=== PATIENT | male | born 1955 | race Caucasian/White ===

== ENCOUNTER 2018-10-05 07:35 | Emergency (ER) | payer MEDICARE ==
--- NOTE | 2018-10-05 08:45 | EDM.PDOC ---
ED HPI GENERAL MEDICAL PROBLEM - General Chief Complaint: Back Pain or Injury Stated Complaint: SHARP BACK PAIN Time Seen by Provider: 10/05/18 08:35 Source of Information: Reports: Patient, RN History Limitations: Reports: No Limitations - History of Present Illness INITIAL COMMENTS - FREE TEXT/NARRATIVE: 63 yo male moved to the area 2 weeks ago so no primary care provider. Has had pain in his R low back for about this duration of time, but does not recall a specific injury. He has no radiation of the pain. No bowel or bladder issues. No numbness of his lower extremities. Has a remote hx of a lumbar disc compression fx about 5 yrs ago that fully resolved(pain-rhodes). Sx's getting worse if anything, has not been seen prior to today's visit. No associated urinary sx's or cough or SOB. Does describe what sounds like muscle spasms with movement. Drove himself to the ER today. Onset: Gradual Onset Date: 09/26/18 Duration: Day(s):, Getting Worse Location: Reports: Back Quality: Reports: Stabbing Severity: Moderate Improves with: Reports: Rest Worsens with: Reports: Movement Context: Reports: Other (unknown) Associated Symptoms: Reports: No Other Symptoms. Denies: Diaphoresis, Fever/ Chills, Nausea/Vomiting Treatments [employer]: Reports: Other (see below) (none today) Right Middle Back Pain Score (Numeric/FACES): 10 - Related Data Allergies Allergy/AdvReac Type Severity Reaction Status Date / Time No Known Allergies Allergy Verified 10/05/18 08:05 Home Meds: Home Meds Aspirin [Halfprin] 81 mg PO DAILY 10/05/18 [History] Calcium Carbonate/Vitamin D3 [Calcium 600 + Vit D Tablet] 1 each PO DAILY [History] Canagliflozin [Invokana] 300 mg PO DAILY 10/05/18 [History] Carvedilol 25 mg PO BID 10/05/18 [History] Digoxin 125 mcg PO DAILY 10/05/18 [History] Eplerenone [Inspra] 25 mg PO DAILY 10/05/18 [History] Lisinopril 20 mg PO DAILY 10/05/18 [History] Multivitamin [Multiple Vitamins] 1 each PO DAILY 10/05/18 [History] Omeprazole 20 mg PO DAILY 10/05/18 [History] Temazepam 30 mg PO BEDTIME 10/05/18 [History] atorvaSTATin [Lipitor] 40 mg PO BEDTIME 10/05/18 [History] Past Medical History Cardiovascular History: Reports: Afib, Automatic Implantable Cardioverter Defibrillators, CAD, Heart Failure, High Cholesterol, Hypertension, Pacemaker Respiratory History: Reports: Sleep Apnea Other Respiratory History: c-pap Gastrointestinal History: Reports: GERD, Other (See Below) Other Gastrointestinal History: gastric sleeve 2010 Other Neuro History: left side went numb for 3 days from a migraine Endocrine/Metabolic History: Reports: Diabetes, Type II, Obesity/BMI 30+ - Past Surgical History Cardiovascular Surgical History: Reports: Cardiac Ablation GI Surgical History: Reports: Colonoscopy Social & Family History - Tobacco Use Smoking Status *Q: Former Smoker Used Tobacco, but Quit: Yes Month/Year Tobacco Last Used: 10 years - Caffeine Use Caffeine Use: Reports: Coffee - Recreational Drug Use Recreational Drug Use: No ED ROS GENERAL - Review of Systems Review Of Systems: See Below Constitutional: Reports: No Symptoms HEENT: Reports: No Symptoms Respiratory: Reports: No Symptoms Cardiovascular: Reports: No Symptoms Endocrine: Reports: No Symptoms GI/Abdominal: Reports: No Symptoms : Reports: No Symptoms Musculoskeletal: Reports: Back Pain Skin: Reports: No Symptoms Neurological: Reports: No Symptoms Psychiatric: Reports: No Symptoms ED EXAM,LOWER BACK PAIN/INJURY - Physical Exam Exam: See Below Exam Limited By: No Limitations General Appearance: Alert, WD/WN, Mild Distress Eye Exam: Bilateral Eye: Normal Inspection Ears: Hearing Grossly Normal Nose: Normal Inspection, No Blood Throat/Mouth: Normal Lips, Normal Voice, No Airway Compromise Head: Atraumatic, Normocephalic Neck: Normal Inspection Respiratory/Chest: No Respiratory Distress, Lungs Clear, Normal Breath Sounds, No Accessory Muscle Use Cardiovascular: Regular Rate, Rhythm, No Edema Back Exam: Normal Inspection, Decreased Range of Motion, Muscle Spasm (R lumbar paraspinous), Paraspinal Tenderness (R lumbar). No: Full Range of Motion, CVA Tenderness (R), CVA Tenderness (L), Vertebral Tenderness Extremities: Normal Inspection, Normal Range of Motion, Non-Tender, No Pedal Edema Neurological: Alert, Normal Mood/Affect, Normal Dorsiflexion, CN II-XII Intact, No Motor/Sensory Deficits, Oriented x 3 Psychiatric: Normal Affect, Normal Mood Skin Exam: Warm, Dry, Intact, Normal Color, No Rash Course - Vital Signs Last Recorded V/S: Last Vital Signs Temp 35.9 C 10/05/18 08:03 Pulse 80 10/05/18 08:03 Resp 18 10/05/18 08:03 BP 115/67 10/05/18 08:03 Pulse Ox 96 10/05/18 08:03 - Orders/Labs/Meds Orders: Active Orders 24 hr Category Date Time Status Lumbar Spine 2 or 3V [CR] Stat Exams 10/05/18 08:39 Ordered - Radiology Interpretation Free Text/Narrative:: lumbar spine X-ray-neg Departure - Departure Time of Disposition: 09:10 Disposition: Home, Self-Care 01 Condition: Fair Clinical Impression: Lumbar paraspinal muscle spasm - Discharge Information *PRESCRIPTION DRUG MONITORING PROGRAM REVIEWED*: No *COPY OF PRESCRIPTION DRUG MONITORING REPORT IN PATIENT FABRICE: No Instructions: Muscle Cramps and Spasms, [id number] Referrals: PCP,None [Primary Care Provider] - Forms: ED Department Discharge Additional Instructions: Take Flexeril 5-10 mg every 6-8 hrs as needed. No lifting, bending or twisting. Add Aleve 2 every 8 hrs with food(naproxen sodium) and/or acetaminophen up to 1000 mg every 6 hrs as needed. Massage to area may give some relief. Whirlpool may also be helpful. Follow up in the clinic if not improving within the next few days. - My Orders Last 24 Hours: My Active Orders 10/05/18 08:39 Lumbar Spine 2 or 3V [CR] Stat - Assessment/Plan Last 24 Hours: My Active Orders 10/05/18 08:39 Lumbar Spine 2 or 3V [CR] Stat
--- NOTE | 2018-10-05 09:46 | CRLCR ---
INDICATION: Right-sided low back pain TECHNIQUE: 2-view lumbar spine. COMPARISON: none FINDINGS: No lumbar vertebral body fracture. Facet arthropathy L5-S1. Multilevel discogenic spurring. Dense vascular calcifications. Normal psoas margins. No bowel obstruction. IMPRESSION: No fracture. Mild multilevel degenerative disc disease. Moderate facet arthropathy L5-S1. Dictated by Sharad Gonzalez MD @ Oct 05 2018 9:41AM Signed by Dr. Sharad Gonzalez @ Oct 05 2018 9:43AM
== END 2018-10-05 09:25 | disposition home or self-care (01) ==
LOC: JP.ED 07:35
DX: M62.830 Muscle spasm of back (principal); I10 Essential (primary) hypertension; K21.9 Gastro-esophageal reflux disease without esophagitis; E11.9 Type 2 diabetes mellitus without complications; Z79.82 Long term (current) use of aspirin; Z79.899 Other long term (current) drug therapy; Z87.891 Personal history of nicotine dependence
CPT/HCPCS: 72100; 99283-25

== ENCOUNTER 2018-11-14 06:18 | Day surgery (SDC) | payer MEDICARE ==
[2018-11-14] MEDS ORDERED: fentaNYL 100 MCG/2 ML SDV ONE (07:13)
[2018-11-14] MEDS ORDERED: Midazolam 1 MG/ML 2 ML SDV ONE (07:13)
[2018-11-14] MEDS ORDERED: Propofol 200 MG/20 ML SDV ONE ×2 (07:13→07:56)
[2018-11-14] MEDS ORDERED: Sodium Chloride 0.9% 1,000 ML IV SCH (07:30)
--- NOTE | 2018-11-14 13:27 | OR ---
DATE OF PROCEDURE: 11/14/2018 PROCEDURE: Colonoscopy. FINDINGS: Normal colonoscopy. PREOPERATIVE DIAGNOSIS: Family history of colorectal cancer. POSTOPERATIVE DIAGNOSIS: Family history of colorectal cancer. RISKS: Risks, benefits, alternatives, and limitations including, but not limited to infection, bleeding, perforation were explained to the patient and wished to proceed. PROCEDURE IN DETAIL: The patient was placed in a left lateral decubitus position. Digital rectal exam was performed without abnormality. Scope was introduced and advanced atraumatically to the ileocecal valve. Scope was brought back to the ascending, transverse, descending colon, and retroflexed. The prep was moderately acceptable with some solid and liquid stool remaining. Attempts were made to remove as much as possible thus allowing us to see greater than 95% of luminal surface. As the scope was brought back to the colon and retroflexed, no abnormalities were noted. No old or new blood. No polyps. No diverticulosis. No colitis. No abnormalities on retroflexion. The patient tolerated this procedure well. Pavel Soto MD /[id number]
== END 2018-11-14 09:01 | disposition home or self-care (01) ==
LOC: JP.SDS 06:18
PROVIDERS: ATTEND Surgery
DX: Z12.11 Encounter for screening for malignant neoplasm of colon (principal); G47.33 Obstructive sleep apnea (adult) (pediatric); I48.91 Unspecified atrial fibrillation; I25.10 Atherosclerotic heart disease of native coronary artery without angina pectoris; I10 Essential (primary) hypertension; E78.5 Hyperlipidemia, unspecified; E11.9 Type 2 diabetes mellitus without complications; Z98.84 Bariatric surgery status; Z95.810 Presence of automatic (implantable) cardiac defibrillator; Z80.0 Family history of malignant neoplasm of digestive organs
CPT/HCPCS: 45378; J2250; J2704; J3010; J7030

== ENCOUNTER 2019-09-27 21:28 | Emergency (ER) | payer MEDICARE ==
[2019-09-27] MEDS ORDERED: Acetaminophen 325 MG Tab PO ONE (22:04)
--- NOTE | 2019-09-27 22:12 | EDM.PDOC ---
ED HPI GENERAL MEDICAL PROBLEM - General Chief Complaint: Cardiovascular Problem Stated Complaint: CONCERNED ABOUT BLOOD CLOT/LT LEG Time Seen by Provider: 09/27/19 22:05 Source of Information: Reports: Patient History Limitations: Reports: No Limitations - History of Present Illness INITIAL COMMENTS - FREE TEXT/NARRATIVE: pt has a long history of clot problems. He had pulmonary emboli many years ago. About 4 years ago he had clots in his legs. He is not on any blood thinners. Onset: Gradual, Other (pt became nauseated for a period of time and he felt sob and was doing some panting. ) Duration: Hour(s): Location: Reports: Chest, Lower Extremity, Left Associated Symptoms: Reports: Shortness of Breath, Other (pt had a brief period of sob. ) Left Leg Pain Score (Numeric/FACES): 5 Headache Pain Score (Numeric/FACES): 10 - Related Data Allergies Allergy/AdvReac Type Severity Reaction Status Date / Time No Known Allergies Allergy Verified 09/27/19 21:38 Home Meds: Home Meds Aspirin [Halfprin] 81 mg PO DAILY 10/05/18 [History] Calcium Carbonate/Vitamin D3 [Calcium 600 + Vit D Tablet] 1 each PO DAILY [History] Canagliflozin [Invokana] 300 mg PO DAILY 10/05/18 [History] Cyclobenzaprine [Flexeril] 10 mg PO TID PRN #14 tab 10/05/18 [Rx] Digoxin 125 mcg PO DAILY 10/05/18 [History] Eplerenone [Inspra] 25 mg PO DAILY 10/05/18 [History] Lisinopril 20 mg PO DAILY 10/05/18 [History] Multivitamin [Multiple Vitamins] 1 each PO DAILY 10/05/18 [History] Omeprazole 20 mg PO DAILY 10/05/18 [History] Temazepam 30 mg PO BEDTIME 10/05/18 [History] atorvaSTATin [Lipitor] 40 mg PO BEDTIME 10/05/18 [History] carvediloL [Carvedilol] 25 mg PO BID 10/05/18 [History] cephALEXin [Cephalexin] 500 mg PO TID 09/27/19 [History] Past Medical History HEENT History: Reports: Impaired Vision Cardiovascular History: Reports: Afib, Automatic Implantable Cardioverter Defibrillators, CAD, Heart Failure, High Cholesterol, Hypertension, Pacemaker Respiratory History: Reports: Sleep Apnea Other Respiratory History: c-pap Gastrointestinal History: Reports: GERD, Other (See Below) Other Gastrointestinal History: gastric sleeve 2011 Musculoskeletal History: Reports: Fracture Other Musculoskeletal History: FINGERS Other Neuro History: left side went numb for 3 days from a migraine Endocrine/Metabolic History: Reports: Diabetes, Type II, Obesity/BMI 30+ - Infectious Disease History Infectious Disease History: Reports: Chicken Pox, Measles, Mumps - Past Surgical History HEENT Surgical History: Reports: None Cardiovascular Surgical History: Reports: Cardiac Ablation, Pacer Respiratory Surgical History: Reports: Lung Biopsies GI Surgical History: Reports: Bariatric Procedure, Colonoscopy, EGD Endocrine Surgical History: Reports: None Neurological Surgical History: Reports: None Musculoskeletal Surgical History: Reports: None Social & Family History - Family History Family Medical History: Noncontributory - Tobacco Use Smoking Status *Q: Never Smoker - Caffeine Use Caffeine Use: Reports: Coffee - Recreational Drug Use Recreational Drug Use: No ED ROS GENERAL - Review of Systems Review Of Systems: See Below Constitutional: Reports: No Symptoms HEENT: Reports: No Symptoms Respiratory: Reports: Shortness of Breath, Other (pt had a brief episode of sob. ) Endocrine: Reports: No Symptoms GI/Abdominal: Reports: No Symptoms : Reports: No Symptoms Musculoskeletal: Reports: No Symptoms Skin: Reports: No Symptoms Neurological: Reports: No Symptoms Psychiatric: Reports: No Symptoms ED EXAM, GENERAL - Physical Exam Exam: See Below Free Text/Narrative:: pt arrived with tenderness on the inner aspect of the left leg. He has noticed tenderness for the past 2 days. Exam Limited By: No Limitations General Appearance: Alert, Anxious, Mild Distress Ears: Normal TMs Nose: Normal Inspection Throat/Mouth: Normal Inspection Head: Atraumatic Neck: Normal Inspection Respiratory/Chest: No Respiratory Distress Cardiovascular: Regular Rate, Rhythm, Other (pt has a pacemaker) GI/Abdominal: Soft, Non-Tender (Male) Exam: Deferred Rectal (Males) Exam: Deferred Back Exam: Normal Inspection Extremities: Other (left leg is tender on the inner aspect of the leg. This does feel firm. ) Neurological: Alert, Oriented, Normal Cognition Psychiatric: Normal Affect Course - Vital Signs Last Recorded V/S: Last Vital Signs Temp 35.9 C L 09/27/19 21:45 Pulse 71 09/27/19 21:45 Resp 18 09/27/19 21:45 BP 131/79 09/27/19 21:45 Pulse Ox 95 09/27/19 21:45 - Orders/Labs/Meds Orders: Active Orders 24 hr Category Date Time Status VL Duplex Lwr Ext Veins Ltd Lt [US] Stat Exams 09/27/19 22:03 Taken Labs: Laboratory Tests 09/27/19 09/27/19 Range/Units 22:05 22:18 WBC 11.0 (4.5-11.0) K/uL RBC 4.82 (4.30-5.90) M/uL Hgb 15.0 (12.0-15.0) g/dL Hct 45.0 (40.0-54.0) % MCV 93 (80-98) fL MCH 31 (27-31) pg MCHC 33 (32-36) % Plt Count 193 (150-400) K/uL Neut % (Auto) 65 (36-66) % Lymph % (Auto) 22 L (24-44) % [place] % (Auto) 9 H (2-6) % Eos % (Auto) 4 (2-4) % Baso % (Auto) 0 (0-1) % Sodium 139 L (140-148) mmol/L Potassium 3.9 (3.6-5.2) mmol/L Chloride 103 (100-108) mmol/L Carbon Dioxide 28 (21-32) mmol/L Anion Gap 11.9 (5.0-14.0) mmol/L BUN 12 (7-18) mg/dL Creatinine 1.0 (0.8-1.3) mg/dL Est Cr Clr Drug Dosing 82.99 mL/min Estimated GFR (MDRD) > 60 (>60) Glucose 193 H (74-106) mg/dL Calcium 8.2 L (8.5-10.1) mg/dL Total Bilirubin 0.3 (0.2-1.0) mg/dL AST 19 (15-37) U/L ALT 35 (12-78) U/L Alkaline Phosphatase 82 (46-116) U/L Total Protein 6.6 (6.4-8.2) g/dL Albumin 3.3 L (3.4-5.0) g/dL Globulin 3.3 (2.3-3.5) g/dL Albumin/Globulin Ratio 1.0 L (1.2-2.2) Meds: Medications Discontinued Medications Generic Name Dose Route Start Last Admin Trade Name Len PRN Reason Stop Dose Admin Acetaminophen 650 mg 09/27/19 22:04 09/27/19 22:09 Tylenol PO 09/27/19 22:05 650 mg NOW ONE Administration - Re-Assessments/Exams Free Text/Narrative Re-Assessment/Exam: 09/27/19 23:53 US of the leg was obtained which did not reveal any clots. He does have marked varicosities. Departure - Departure Time of Disposition: 23:48 Disposition: Home, Self-Care 01 Condition: Fair Clinical Impression: Varicose vein of leg Referrals: Stephanie Chung MD [Primary Care Provider] - Forms: ED Department Discharge Care Plan Goals: elevate legs several times daily, rtc if increased problems. Sepsis Event Note (ED) - Evaluation Sepsis Screening Result: No Definite Risk - Focused Exam Vital Signs: Vital Signs Temp Pulse Resp BP Pulse Ox 09/27/19 21:45 35.9 C L 71 18 131/79 95 - My Orders Last 24 Hours: My Active Orders 09/27/19 22:03 VL Duplex Lwr Ext Veins Ltd Lt [US] Stat - Assessment/Plan Last 24 Hours: My Active Orders 09/27/19 22:03 VL Duplex Lwr Ext Veins Ltd Lt [US] Stat
--- NOTE | 2019-09-28 09:12 | US ---
VL Duplex Lwr Ext Veins Ltd Lt INDICATION: tenderness in innner thigh. FINDINGS: Ultrasound examination of the lower extremity using Doppler and compressive technique demonstrates that the common femoral, femoral, and popliteal veins are patent, and compressible throughout. Calf veins were segmentally visualized and are negative where seen. IMPRESSION: Negative for deep venous thrombosis.
== END 2019-09-28 | disposition home or self-care (01) ==
LOC: JP.ED 21:28
DX: I83.92 Asymptomatic varicose veins of left lower extremity (principal); I48.91 Unspecified atrial fibrillation; I25.10 Atherosclerotic heart disease of native coronary artery without angina pectoris; I11.0 Hypertensive heart disease with heart failure; I50.9 Heart failure, unspecified; K21.9 Gastro-esophageal reflux disease without esophagitis; E78.00 Pure hypercholesterolemia, unspecified; Z79.82 Long term (current) use of aspirin; Z79.899 Other long term (current) drug therapy; Z79.84 Long term (current) use of oral hypoglycemic drugs; E66.9 Obesity, unspecified; Z68.34 Body mass index [BMI] 34.0-34.9, adult
CPT/HCPCS: 36415; 80053; 85025; 93971; 99282; 99285; A9270

== ENCOUNTER 2020-02-12 07:30 | Day surgery (SDC) | payer MEDICARE ==
[~2020-02-12 07:30] MED LIST: Midazolam 1 MG/ML 2 ML SDV ONE; Propofol 200 MG/20 ML SDV ONE; fentaNYL 100 MCG/2 ML SDV ONE
[2020-02-12] MEDS ORDERED: Dextrose 5%-Lactated Ringers 1,000 ML IV SCH (08:00)
[2020-02-12] MEDS ORDERED: Propofol 200 MG/20 ML SDV ONE (09:58)
--- NOTE | 2020-02-19 15:42 | OR ---
DATE OF PROCEDURE: 02/12/2020 SURGEON: Esteban Cartagena MD PREOPERATIVE DIAGNOSES: 1. History of severe gastroesophageal reflux disease status post previous sleeve gastrectomy. 2. Family history of colon carcinoma. POSTOPERATIVE DIAGNOSES: 1. Severe gastroesophageal reflux disease and diffuse gastritis related to the large bowel retention in the previous sleeve gastrectomy. 2. Single small polyp involving the ascending colon. OPERATIVE PROCEDURES: 1. Esophagogastroduodenoscopy with gastric biopsies for histologic evaluation (99435). 2. Colonoscopy with polypectomy by cold biopsy forceps ([id number]). ANESTHESIA: IV sedation. INDICATIONS FOR PROCEDURE: The patient presents status post a sleeve gastrectomy done in [place] several years ago. The patient presents now with quite severe reflux symptoms. Presently, these have been on proton pump inhibitors without much in the way of success. Also has a family history of colon carcinoma and is to undergo a flexible colonoscopy with biopsies and/or polypectomy as indicated. Potential risks of procedure including bleeding and perforation were discussed and the patient wishes to proceed. DETAILS OF PROCEDURE: The patient was taken to the operating room and placed in a left lateral decubitus position. IV sedation was administered after which the upper GI endoscope was passed orally through the length of the esophagus, into the stomach, and from there through the pyloric channel and into the proximal duodenum. Findings included some bile retention within the esophagus. Within the stomach, there was a diffuse quite severe gastritis present with a large amount of retained bile. There were no erosions or ulcers, but there were quite marked areas of edema within the gastric mucosa. The pyloric channel and proximal duodenum were unremarkable. Multiple biopsies were then obtained from the area of the gastritis and sent for histologic evaluation. Attention was then taken to the colonoscopy. Initial digital rectal exam was performed and was unremarkable. The colonoscope was then passed to the level of the cecum. The prep was quite good with only a small amount of liquid stool present. Only a very small single polyp was present within the ascending colon. This was obtained with 3 bites of the cold biopsy forceps and the tissue sent for histologic evaluation. No additional abnormalities were noted. The scope was then withdrawn, the above findings reconfirmed, and the procedure then concluded. At this point, we will have the patient add Carafate 1 g q.i.d. to the regimen. I will see the patient back on March 05 to see how he is doing with regard to symptoms. Should the reflux symptoms not be adequately controlled, then consideration for conversion to Daniel-en-Y gastric bypass would be appropriate. The patient remains a diabetic, so that would be an additional benefit of conversion to a gastric bypass should that become necessary. Esteban Cartagena MD /[id number]
== END 2020-02-12 11:30 | disposition home or self-care (01) ==
LOC: JP.SDS 07:30
PROVIDERS: ATTEND Surgery
DX: Z12.11 Encounter for screening for malignant neoplasm of colon (principal); D12.2 Benign neoplasm of ascending colon; K29.50 Unspecified chronic gastritis without bleeding; E78.70 Disorder of bile acid and cholesterol metabolism, unspecified; K21.9 Gastro-esophageal reflux disease without esophagitis; E11.9 Type 2 diabetes mellitus without complications; I11.0 Hypertensive heart disease with heart failure; I50.9 Heart failure, unspecified; I25.10 Atherosclerotic heart disease of native coronary artery without angina pectoris; I48.91 Unspecified atrial fibrillation; F43.10 Post-traumatic stress disorder, unspecified; Z98.84 Bariatric surgery status; Z88.8 Allergy status to other drugs, medicaments and biological substances; Z80.0 Family history of malignant neoplasm of digestive organs
CPT/HCPCS: 43239; 45380; J2250; J2704; J3010; J7121; 88305; 88342

== ENCOUNTER 2021-04-11 17:53 | Emergency (ER) | payer MEDICARE ==
[2021-04-11 19:37] LABS: CORONAVIRUS COVID-19 NAA NEGATIVE (NEGATIVE)
== END 2021-04-11 19:41 | disposition left against medical advice (07) ==
LOC: JP.ED 17:53
DX: Z53.21 Procedure and treatment not carried out due to patient leaving prior to being seen by health care provider (principal)
CPT/HCPCS: 0241U

== ENCOUNTER 2021-05-28 12:23 | Emergency (ER) | payer MEDICARE | END 2021-05-28 13:26 | disposition home or self-care (01) | LOC: JP.ED 12:23 | DX: J40 Bronchitis, not specified as acute or chronic (principal); I11.0 Hypertensive heart disease with heart failure; I50.9 Heart failure, unspecified; E78.00 Pure hypercholesterolemia, unspecified; E11.9 Type 2 diabetes mellitus without complications; E66.9 Obesity, unspecified; K21.9 Gastro-esophageal reflux disease without esophagitis; I25.10 Atherosclerotic heart disease of native coronary artery without angina pectoris; Z95.0 Presence of cardiac pacemaker; Z68.35 Body mass index [BMI] 35.0-35.9, adult; Z88.8 Allergy status to other drugs, medicaments and biological substances; Z79.82 Long term (current) use of aspirin; Z79.899 Other long term (current) drug therapy; Z72.0 Tobacco use | CPT/HCPCS: 71046; 71046-26; 99283; 99284-25 ==

== ENCOUNTER 2021-05-29 17:58 | Emergency (ER) | payer MEDICARE ==
[2021-05-29 20:03] LABS: CORONAVIRUS COVID-19 NAA NEGATIVE (NEGATIVE)
[2021-05-29] MEDS ORDERED: Iopamidol 755 Mg/ML 100 ML Bottle IV ONE (20:23)
[2021-05-29] MEDS ORDERED: Sodium Chloride 0.9% 75 ML IV SCH (20:30)
[2021-05-29] MEDS ORDERED: Albuterol 0.083% 2.5 MG/3 ML Neb Soln NEB ONE (21:34)
[2021-05-29] MEDS ORDERED: Triamcinolone Acetonide 40 MG/ML 1 ML SDV INJECT ONE (22:55)
== END 2021-05-29 23:39 | disposition home or self-care (01) ==
LOC: JP.ED 17:58
DX: J98.01 Acute bronchospasm (principal); J40 Bronchitis, not specified as acute or chronic; I27.20 Pulmonary hypertension, unspecified; I11.0 Hypertensive heart disease with heart failure; I50.9 Heart failure, unspecified; I48.91 Unspecified atrial fibrillation; I25.10 Atherosclerotic heart disease of native coronary artery without angina pectoris; E78.00 Pure hypercholesterolemia, unspecified; K21.9 Gastro-esophageal reflux disease without esophagitis; E11.9 Type 2 diabetes mellitus without complications; E66.9 Obesity, unspecified; Z68.1 Body mass index [BMI] 19.9 or less, adult; Z72.0 Tobacco use; Z88.8 Allergy status to other drugs, medicaments and biological substances; Z79.84 Long term (current) use of oral hypoglycemic drugs; Z79.899 Other long term (current) drug therapy; Z20.822 Contact with and (suspected) exposure to COVID-19
CPT/HCPCS: 0241U; 36415; 71275; 80053; 81001; 85025; 85379; 93005; 94640; 99284; 99285; J3301; Q9967

== ENCOUNTER 2021-06-02 15:37 | Inpatient (IN) | payer MEDICARE ==
[2021-06-02] MEDS ORDERED: 50% Dextrose in Water 50 ML Syringe IV PRN (16:09)
[2021-06-02] MEDS ORDERED: Sodium Chloride 0.9% 10 ML Syringe FLUSH PRN (16:09)
[2021-06-02] MEDS ORDERED: Acetaminophen 325 MG Tab PO PRN (16:09)
[2021-06-02] MEDS ORDERED: Ondansetron 4 MG/2 ML SDV IV PRN (16:09)
[2021-06-02] MEDS ORDERED: Glucose Gel 15 GM in 37.5 GM Tube PO PRN (16:09)
[2021-06-02] MEDS ORDERED: Albuterol 0.083% 2.5 MG/3 ML Neb Soln NEB PRN (16:09)
[2021-06-02] MEDS ORDERED: Dexamethasone 4 MG/ML SDV IVPUSH SCH (16:15)
[2021-06-02] MEDS: Sodium Chloride 0.9% 1,000 ML IV SCH (16:29)
[2021-06-02] MEDS: oxyCODONE 5 MG Tab PO PRN ×2 (16:30→20:52)
[2021-06-02] MEDS: Ampicillin/Sulbactam Na 3 GM in Sodium Chloride 0.9% 100 ML IV SCH ×2 (17:13→22:45)
[2021-06-02] MEDS: Insulin Lispro 100 Unit/ML 3 ML KwikPen SUBCUT SCH ×2 (17:24→21:15)
[2021-06-02] MEDS: Enoxaparin 40 MG/0.4 ML Syringe SUBCUT SCH (18:24)
[2021-06-02] MEDS: Temazepam 15 MG Cap PO PRN (20:55)
[2021-06-02] MEDS: atorvaSTATin 20 MG Tab PO SCH (20:58)
[2021-06-02] MEDS: Lisinopril 10 MG Tab PO SCH (20:58)
[2021-06-02] MEDS: Carvedilol 12.5 MG Tab PO SCH (20:58)
[2021-06-03] MEDS: oxyCODONE 5 MG Tab PO PRN ×6 (00:59→21:27)
[2021-06-03] MEDS: Ampicillin/Sulbactam Na 3 GM in Sodium Chloride 0.9% 100 ML IV SCH ×4 (04:43→23:23)
[2021-06-03 06:33] LABS: CORONAVIRUS COVID-19 NAA NEGATIVE (NEGATIVE)
[2021-06-03] MEDS: Insulin Lispro 100 Unit/ML 3 ML KwikPen SUBCUT SCH ×4 (07:39→21:27)
[2021-06-03] MEDS ORDERED: CANAGLIFLOZIN 300 MG PO SCH (09:00)
[2021-06-03] MEDS: Carvedilol 12.5 MG Tab PO SCH ×2 (09:05→20:41)
[2021-06-03] MEDS: Aspirin 81 MG Tab.EC PO SCH (09:07)
[2021-06-03] MEDS: Lisinopril 10 MG Tab PO SCH ×2 (09:07→20:42)
[2021-06-03] MEDS: Pantoprazole 40 MG Tab.CR PO SCH (09:14)
[2021-06-03] MEDS: Sodium Chloride 0.9% 1,000 ML IV SCH (09:15)
[2021-06-03] MEDS: Empagliflozin 10 MG Tab PO SCH (10:43)
[2021-06-03] MEDS: Enoxaparin 40 MG/0.4 ML Syringe SUBCUT SCH (17:18)
[2021-06-03] MEDS: Temazepam 15 MG Cap PO PRN (20:40)
[2021-06-03] MEDS: atorvaSTATin 20 MG Tab PO SCH (20:42)
[2021-06-04] MEDS: Ampicillin/Sulbactam Na 3 GM in Sodium Chloride 0.9% 100 ML IV SCH ×2 (04:13→11:25)
[2021-06-04] MEDS: Insulin Lispro 100 Unit/ML 3 ML KwikPen SUBCUT SCH ×2 (09:02→11:25)
[2021-06-04] MEDS: Pantoprazole 40 MG Tab.CR PO SCH (09:04)
[2021-06-04] MEDS: Aspirin 81 MG Tab.EC PO SCH (09:04)
[2021-06-04] MEDS: Carvedilol 12.5 MG Tab PO SCH (09:04)
[2021-06-04] MEDS: Empagliflozin 10 MG Tab PO SCH (09:04)
[2021-06-04] MEDS: Lisinopril 10 MG Tab PO SCH (09:05)
== END 2021-06-04 11:30 | disposition home or self-care (01) | DRG 156 ==
LOC: JP.MS 15:37
PROVIDERS: ADMIT Hospitalist; ATTEND Hospitalist
PROC: 3E0333Z Introduction of Anti-inflammatory into Peripheral Vein, Percutaneous Approach (ICD-10-PCS; principal; 2021-06-02)
DX: K11.20 Sialoadenitis, unspecified (principal); E11.9 Type 2 diabetes mellitus without complications; I50.9 Heart failure, unspecified; E78.5 Hyperlipidemia, unspecified; I11.0 Hypertensive heart disease with heart failure; H54.7 Unspecified visual loss; I48.91 Unspecified atrial fibrillation; I25.10 Atherosclerotic heart disease of native coronary artery without angina pectoris; E78.00 Pure hypercholesterolemia, unspecified; G47.30 Sleep apnea, unspecified; K21.9 Gastro-esophageal reflux disease without esophagitis; G43.909 Migraine, unspecified, not intractable, without status migrainosus; E66.9 Obesity, unspecified; Z20.822 Contact with and (suspected) exposure to COVID-19; Z79.82 Long term (current) use of aspirin; Z79.84 Long term (current) use of oral hypoglycemic drugs; Z79.899 Other long term (current) drug therapy; Z88.8 Allergy status to other drugs, medicaments and biological substances; Z95.810 Presence of automatic (implantable) cardiac defibrillator; Z86.19 Personal history of other infectious and parasitic diseases
CPT/HCPCS: 0241U; 36415; 80048; 80053; 82947; 83735; 84145; 85025; 86140; A9270-GY; J0295; J1100; J1650; J1815; J7030

== ENCOUNTER 2021-11-04 16:41 | Emergency (ER) | payer MEDICARE ==
[2021-11-04] MEDS ORDERED: Albuterol/Ipratropium 3.0-0.5 MG/3 ML Neb Soln NEB ONE (18:35)
[2021-11-04 18:59] LABS: ESTIMATED GFR 84 mL/min (>60)
== END 2021-11-04 19:40 | disposition home or self-care (01) ==
LOC: JP.ED 16:41
DX: J45.40 Moderate persistent asthma, uncomplicated (principal); I25.10 Atherosclerotic heart disease of native coronary artery without angina pectoris; K21.9 Gastro-esophageal reflux disease without esophagitis; I10 Essential (primary) hypertension; E11.9 Type 2 diabetes mellitus without complications; E66.9 Obesity, unspecified; Z68.35 Body mass index [BMI] 35.0-35.9, adult; Z88.8 Allergy status to other drugs, medicaments and biological substances; Z79.899 Other long term (current) drug therapy; Z79.82 Long term (current) use of aspirin; Z20.822 Contact with and (suspected) exposure to COVID-19
CPT/HCPCS: 36415; 71046; 80053; 84484; 85025; 99285; U0002; 99283; J7620

== ENCOUNTER 2021-12-07 12:02 | Emergency (ER) | payer MEDICARE ==
[2021-12-07] MEDS ORDERED: Acetaminophen/HYDROcodone 325-5 MG Tab PO ONE (13:49)
[2021-12-07 14:27] LABS: TROPONIN I HIGH SENSITIVITY 18.8 pg/mL (<=60.3)
== END 2021-12-07 15:58 | disposition home or self-care (01) ==
LOC: JP.ED 12:02
DX: U07.1 COVID-19 (principal); T82.897A Other specified complication of cardiac prosthetic devices, implants and grafts, initial encounter; R07.89 Other chest pain; I10 Essential (primary) hypertension; E11.9 Type 2 diabetes mellitus without complications; E66.9 Obesity, unspecified; Z68.30 Body mass index [BMI] 30.0-30.9, adult; Z79.899 Other long term (current) drug therapy; Z79.82 Long term (current) use of aspirin
CPT/HCPCS: 36415; 71045; 80048; 84484; 85025; 85379; 86140; 93005; 99285; A9270

== ENCOUNTER 2022-05-26 13:19 | Emergency (ER) | payer OTHER, MEDICARE ==
[2022-05-26] MEDS ORDERED: Ketorolac 30 MG/ML SDV IM ONE (14:02)
== END 2022-05-26 16:08 | disposition home or self-care (01) ==
LOC: JP.ED 13:19
DX: S29.012A Strain of muscle and tendon of back wall of thorax, initial encounter (principal); I25.10 Atherosclerotic heart disease of native coronary artery without angina pectoris; I10 Essential (primary) hypertension; E11.9 Type 2 diabetes mellitus without complications; E66.9 Obesity, unspecified; Z68.34 Body mass index [BMI] 34.0-34.9, adult; Z88.8 Allergy status to other drugs, medicaments and biological substances; Z79.82 Long term (current) use of aspirin; Z79.899 Other long term (current) drug therapy; Z72.0 Tobacco use; X50.0XXA Overexertion from strenuous movement or load, initial encounter
CPT/HCPCS: 72128; 72128-26; 96372; 99283; J1885

== ENCOUNTER 2023-08-14 14:07 | Emergency (ER) | payer MEDICARE ==
[2023-08-14] MEDS ORDERED: Sodium Chloride 0.9% 10 ML Syringe FLUSH PRN (14:19)
[2023-08-14] MEDS ORDERED: Naloxone 0.4 MG/ML SDV IVPUSH PRN (14:20)
[2023-08-14 14:29] LABS: BASOPHILS ABSOLUTE AUTO 0.06 K/uL (0.00-0.10); BASOPHILS PERCENT AUTO 0.5 % (0.1-1.3); EOSINOPHILS ABSOLUTE AUTO 0.24 K/uL (0.00-0.40); EOSINOPHILS PERCENT AUTO 2.1 % (0.0-5.4); HEMATOCRIT 50.8 % (38.4-49.7); HEMOGLOBIN 17.6 g/dL (12.9-16.9); IMMATURE GRAN ABSOLUTE AUTO 0.04 K/uL (0.00-0.23); IMMATURE GRAN PERCENT AUTO 0.4 % (0.0-0.7); LYMPHOCYTES ABSOLUTE AUTO 2.58 K/uL (0.8-3.3); LYMPHOCYTES PERCENT AUTO 22.8 % (11.4-47.7); MEAN CORPUSCULAR HEMOGLOBIN 31.7 pg (31.6-35.5); MEAN CORPUSCULAR HGB CONC 34.6 g/dL (31.6-35.5); MEAN CORPUSCULAR VOLUME 91.5 fL (81.4-99.0); MONOCYTES ABSOLUTE AUTO 0.86 K/uL (0.20-0.90); MONOCYTES PERCENT AUTO 7.6 % (3.3-12.6); NEUTROPHILS ABSOLUTE AUTO 7.55 K/uL (1.0-7.6); NEUTROPHILS PERCENT AUTO 66.6 % (40.0-78.1); PLATELET COUNT,PLT 177 K/uL (130-375); RED BLOOD CELL COUNT 5.55 M/uL (4.14-5.76); WHITE BLOOD CELL COUNT,WBC 11.3 K/uL (3.2-11.0)
[2023-08-14] MEDS: Aspirin 81 MG Tab.Chew PO ONE (14:39)
[2023-08-14] MEDS: Morphine 2 MG/ML SYRINGE IVPUSH ONE ×2 (14:40→15:29)
[2023-08-14] MEDS: Nitroglycerin 0.4 MG Tab.SL SL PRN (14:45)
[2023-08-14 14:49] LABS: INR 1.1; PROTHROMBIN TIME 10.7 sec (9.2-10.6); PTT,PARTIAL THROMBOPLSTIN TIME 25.8 sec (21.8-27.3)
[2023-08-14 14:52] LABS: A/G RATIO 1.1 (1.2-2.2); ALANINE AMINOTRANSFERASE,ALT 29 U/L (12-78); ALBUMIN 3.7 g/dL (3.4-5.0); ALKALINE PHOSPHATASE 77 U/L (46-116); ASPARTATE AMNIOTRANSFERASE,AST 16 U/L (15-37); BILIRUBIN TOTAL 0.5 mg/dL (0.2-1.0); BLOOD UREA NITROGEN,BUN 15 mg/dL (7-18); CALCIUM 8.6 mg/dL (8.5-10.1); CARBON DIOXIDE,CO2 27 mmol/L (21-32); CHLORIDE,CL 103 mmol/L (100-108); CREATININE 0.9 mg/dL (0.8-1.3); ESTIMATED GFR 94 mL/min (>60); GLUCOSE RANDOM 137 mg/dL (74-106); POTASSIUM,K 4.4 mmol/L (3.6-5.2); SODIUM,NA 139 mmol/L (140-148); TROPONIN I HIGH SENSITIVITY 28.9 pg/mL (<=60.3)
[2023-08-14 14:53] LABS: ANION GAP 13.4 mmol/L (5.0-14.0)
[2023-08-14] MEDS: Ketorolac 15 MG/ML SDV IVPUSH ONE (15:59)
[2023-08-14] MEDS: Furosemide 20 MG/2 ML VIAL IVPUSH ONE (16:40)
== END 2023-08-14 17:21 | disposition home or self-care (01) ==
LOC: JP.ED 14:07
DX: I11.0 Hypertensive heart disease with heart failure (principal); I50.9 Heart failure, unspecified; M79.602 Pain in left arm; I25.10 Atherosclerotic heart disease of native coronary artery without angina pectoris; I48.91 Unspecified atrial fibrillation; K21.9 Gastro-esophageal reflux disease without esophagitis; E11.9 Type 2 diabetes mellitus without complications; Z88.8 Allergy status to other drugs, medicaments and biological substances; Z79.82 Long term (current) use of aspirin; Z79.899 Other long term (current) drug therapy; Z95.0 Presence of cardiac pacemaker
CPT/HCPCS: 36415; 71045; 80053; 80162; 83880; 84484; 85025; 85379; 85610; 85730; 93005; 96374; 96375; 96376; 99285; A9270; J1885; J1940; J2270

== ENCOUNTER 2023-10-31 23:12 | Emergency (ER) | payer MEDICARE ==
[2023-10-31 23:57] LABS: A/G RATIO 1.2 (1.2-2.2); ALANINE AMINOTRANSFERASE,ALT 24 U/L (12-78); ALBUMIN 3.8 g/dL (3.4-5.0); ALKALINE PHOSPHATASE 71 U/L (46-116); ASPARTATE AMNIOTRANSFERASE,AST 12 U/L (15-37); BILIRUBIN TOTAL 1.3 mg/dL (0.2-1.0); BLOOD UREA NITROGEN,BUN 14 mg/dL (7-18); CALCIUM 8.6 mg/dL (8.5-10.1); CARBON DIOXIDE,CO2 29 mmol/L (21-32); CHLORIDE,CL 101 mmol/L (100-108); CREATININE 1.1 mg/dL (0.8-1.3); EST CRCL DRUG DOSING (CG) 73.65 mL/min; ESTIMATED GFR 74 mL/min (>60); GLUCOSE RANDOM 131 mg/dL (74-106); POTASSIUM,K 3.7 mmol/L (3.6-5.2); PROTEIN TOTAL,TP 6.9 g/dL (6.4-8.2); SODIUM,NA 142 mmol/L (140-148); TROPONIN I HIGH SENSITIVITY 46.9 pg/mL (<=60.3)
[2023-11-01 00:05] LABS: BASOPHILS ABSOLUTE AUTO 0.07 K/uL (0.00-0.10); BASOPHILS PERCENT AUTO 0.5 % (0.1-1.3); EOSINOPHILS ABSOLUTE AUTO 0.32 K/uL (0.00-0.40); EOSINOPHILS PERCENT AUTO 2.4 % (0.0-5.4); HEMATOCRIT 43.8 % (38.4-49.7); HEMOGLOBIN 15.2 g/dL (12.9-16.9); IMMATURE GRAN PERCENT AUTO 1.5 % (0.0-0.7); LYMPHOCYTES ABSOLUTE AUTO 2.61 K/uL (0.8-3.3); LYMPHOCYTES PERCENT AUTO 19.9 % (11.4-47.7); MEAN CORPUSCULAR HEMOGLOBIN 31.6 pg (31.6-35.5); MEAN CORPUSCULAR HGB CONC 34.7 g/dL (31.6-35.5); MEAN CORPUSCULAR VOLUME 91.1 fL (81.4-99.0); MONOCYTES ABSOLUTE AUTO 1.03 K/uL (0.20-0.90); MONOCYTES PERCENT AUTO 7.9 % (3.3-12.6); NEUTROPHILS ABSOLUTE AUTO 8.89 K/uL (1.0-7.6); NEUTROPHILS PERCENT AUTO 67.8 % (40.0-78.1); PLATELET COUNT,PLT 209 K/uL (130-375); RED BLOOD CELL COUNT 4.81 M/uL (4.14-5.76); WHITE BLOOD CELL COUNT,WBC 13.1 K/uL (3.2-11.0)
[2023-11-01] MEDS: Ketorolac 30 MG/ML SDV IVPUSH ONE (00:12)
[2023-11-01] MEDS: LORazepam 1 MG Tab PO ONE (01:11)
== END 2023-11-01 01:27 | disposition home or self-care (01) ==
LOC: JP.ED 23:12
DX: R07.89 Other chest pain (principal); J40 Bronchitis, not specified as acute or chronic; I25.10 Atherosclerotic heart disease of native coronary artery without angina pectoris; I11.0 Hypertensive heart disease with heart failure; I50.9 Heart failure, unspecified; E78.00 Pure hypercholesterolemia, unspecified; K21.9 Gastro-esophageal reflux disease without esophagitis; E11.9 Type 2 diabetes mellitus without complications; E66.9 Obesity, unspecified; Z68.31 Body mass index [BMI] 31.0-31.9, adult; Z79.899 Other long term (current) drug therapy; Z79.82 Long term (current) use of aspirin; Z88.8 Allergy status to other drugs, medicaments and biological substances
CPT/HCPCS: 36415; 71046; 80053; 84484; 85025; 93005; 96374; 99285; A9270; J1885; U0002

== ENCOUNTER 2023-12-25 18:59 | Emergency (ER) | payer MEDICARE ==
[2023-12-25 19:27] LABS: BASOPHILS ABSOLUTE AUTO 0.04 K/uL (0.00-0.10); BASOPHILS PERCENT AUTO 0.4 % (0.1-1.3); EOSINOPHILS ABSOLUTE AUTO 0.13 K/uL (0.00-0.40); EOSINOPHILS PERCENT AUTO 1.3 % (0.0-5.4); HEMATOCRIT 38.9 % (38.4-49.7); HEMOGLOBIN 13.5 g/dL (12.9-16.9); IMMATURE GRAN ABSOLUTE AUTO 0.03 K/uL (0.00-0.23); IMMATURE GRAN PERCENT AUTO 0.3 % (0.0-0.7); LYMPHOCYTES ABSOLUTE AUTO 1.47 K/uL (0.8-3.3); LYMPHOCYTES PERCENT AUTO 15.3 % (11.4-47.7); MEAN CORPUSCULAR HEMOGLOBIN 32.7 pg (31.6-35.5); MEAN CORPUSCULAR HGB CONC 34.7 g/dL (31.6-35.5); MEAN CORPUSCULAR VOLUME 94.2 fL (81.4-99.0); MONOCYTES ABSOLUTE AUTO 0.77 K/uL (0.20-0.90); NEUTROPHILS ABSOLUTE AUTO 7.19 K/uL (1.0-7.6); NEUTROPHILS PERCENT AUTO 74.7 % (40.0-78.1); PLATELET COUNT,PLT 154 K/uL (130-375); RED BLOOD CELL COUNT 4.13 M/uL (4.14-5.76); WHITE BLOOD CELL COUNT,WBC 9.6 K/uL (3.2-11.0)
[2023-12-25 19:50] LABS: ANION GAP 8.6 mmol/L (5.0-14.0); CALCIUM 9.1 mg/dL (8.5-10.1); CREATININE 1.1 mg/dL (0.8-1.3); EST CRCL DRUG DOSING (CG) 71.53 mL/min; POTASSIUM,K 3.8 mmol/L (3.6-5.2); TROPONIN I HIGH SENSITIVITY 18.9 pg/mL (<=60.3)
== END 2023-12-25 21:29 | disposition home or self-care (01) ==
LOC: JP.ED 18:59
DX: J18.9 Pneumonia, unspecified organism (principal); I25.10 Atherosclerotic heart disease of native coronary artery without angina pectoris; I48.91 Unspecified atrial fibrillation; I10 Essential (primary) hypertension; K21.9 Gastro-esophageal reflux disease without esophagitis; E11.9 Type 2 diabetes mellitus without complications; Z95.0 Presence of cardiac pacemaker; Z88.8 Allergy status to other drugs, medicaments and biological substances; Z79.01 Long term (current) use of anticoagulants; Z79.85 Long-term (current) use of injectable non-insulin antidiabetic drugs; Z79.899 Other long term (current) drug therapy
CPT/HCPCS: 36415; 71045; 71045-26; 80048; 84484; 85025; 85379; 93005; 93010; 99284; 99285

== ENCOUNTER 2024-12-31 14:20 | Emergency (ER) | payer MEDICARE ==
[2024-12-31 17:31] LABS: BASE EXCESS VENOUS 3.8 mm/L; BASOPHILS ABSOLUTE AUTO 0.04 K/uL (0.00-0.10); BASOPHILS PERCENT AUTO 0.3 % (0.1-1.3); BICARBONATE,VENOUS 30.3 mmol/L; EOSINOPHILS ABSOLUTE AUTO 0.22 K/uL (0.00-0.40); EOSINOPHILS PERCENT AUTO 1.9 % (0.0-5.4); IMMATURE GRAN ABSOLUTE AUTO 0.07 K/uL (0.00-0.23); IMMATURE GRAN PERCENT AUTO 0.6 % (0.0-0.7); LYMPHOCYTES ABSOLUTE AUTO 0.77 K/uL (0.8-3.3); LYMPHOCYTES PERCENT AUTO 6.5 % (11.4-47.7); MONOCYTES ABSOLUTE AUTO 1.20 K/uL (0.20-0.90); MONOCYTES PERCENT AUTO 10.2 % (3.3-12.6); NEUTROPHILS ABSOLUTE AUTO 9.47 K/uL (1.0-7.6); NEUTROPHILS PERCENT AUTO 80.5 % (40.0-78.1); O2 SATURATION VENOUS 33.3; OXYHEMOGLOBIN 31.6 %; PCO2 VENOUS 52.8 mm/Hg; PH,VENOUS 7.376 (7.350-7.450); PLATELET COUNT,PLT 147 K/uL (130-375); RED BLOOD CELL COUNT 5.60 M/uL (4.14-5.76); TOTAL HEMOGLOBIN 18.9 g/dL (13.5-18.0); WHITE BLOOD CELL COUNT,WBC 11.8 K/uL (3.2-11.0)
[2024-12-31 17:35] LABS: APPEARANCE,URINE CLEAR (CLEAR); GLUCOSE,URINE 500 mg/dL (NEGATIVE); OCCULT BLOOD,URINE NEGATIVE (NEGATIVE)
[2024-12-31 17:37] LABS: PO2 VENOUS 23.1 mm/Hg
[2024-12-31 17:46] LABS: SQUAMOUS EPITHELIAL CELLS,UR NOT SEEN /HPF; UROTHELIAL CELLS,URINE NOT SEEN /HPF
[2024-12-31 17:50] LABS: INR 1.1
[2024-12-31 18:01] LABS: A/G RATIO 1.2 (1.2-2.2); ALANINE AMINOTRANSFERASE,ALT 29 U/L (12-78); ASPARTATE AMNIOTRANSFERASE,AST 15 U/L (15-37); BILIRUBIN TOTAL 0.5 mg/dL (0.2-1.0); BLOOD UREA NITROGEN,BUN 10 mg/dL (7-18); CARBON DIOXIDE,CO2 31 mmol/L (21-32); CHLORIDE,CL 103 mmol/L (100-108); CREATININE 0.9 mg/dL (0.8-1.3); ESTIMATED GFR 93 mL/min (>60); GLUCOSE RANDOM 106 mg/dL (74-106); POTASSIUM,K 4.3 mmol/L (3.6-5.2); PRO B-TYPE NATRIUR PEPT,BNPPRO 772 pg/mL (5-125); PROTEIN TOTAL,TP 7.1 g/dL (6.4-8.2); SODIUM,NA 141 mmol/L (140-148); TROPONIN I HIGH SENSITIVITY 20.4 pg/mL (<=60.3)
== END 2024-12-31 18:51 | disposition home or self-care (01) ==
LOC: JP.ED 14:20
DX: J40 Bronchitis, not specified as acute or chronic (principal); I25.10 Atherosclerotic heart disease of native coronary artery without angina pectoris; I48.91 Unspecified atrial fibrillation; E11.9 Type 2 diabetes mellitus without complications; K21.9 Gastro-esophageal reflux disease without esophagitis; I25.2 Old myocardial infarction; E78.00 Pure hypercholesterolemia, unspecified; I11.0 Hypertensive heart disease with heart failure; I50.9 Heart failure, unspecified; Z86.16 Personal history of COVID-19; Z88.8 Allergy status to other drugs, medicaments and biological substances; Z79.899 Other long term (current) drug therapy; Z79.85 Long-term (current) use of injectable non-insulin antidiabetic drugs; Z79.01 Long term (current) use of anticoagulants; Z79.02 Long term (current) use of antithrombotics/antiplatelets
CPT/HCPCS: 36415; 71045; 71045-26; 80053; 80307; 81001; 82803; 83605; 83735; 83880; 84484; 85025; 85610; 86140; 87428-QW; 93005; 93010; 96360; 99284; 99285-25; A9270-GY; J7030